=== PATIENT | male | born 1970 | race Caucasian/White ===

== ENCOUNTER → 2023-04-14 | Outpatient (CLI) | payer BC ==
[2023-04-14 12:13] LABS: HEMATOCRIT 47.6 % (42.0-52.0); HEMOGLOBIN 15.8 g/dL (13.5-18.0); MEAN PLATELET VOLUME 11.2 fl (7.4-10.4); RED BLOOD COUNT 5.42 M/mm3 (4.20-5.60); RED CELL DISTRIBUTION WIDTH 12.2 % (11.5-14.5); WHITE BLOOD COUNT 6.2 K/mm3 (4.8-10.8)
[2023-04-14 12:18] LABS: ALBUMIN 4.5 g/dL (3.5-5.0)
[2023-04-14 12:19] LABS: SODIUM 143 mmol/L (136-145)
[2023-04-14 12:20] LABS: CALCIUM 9.3 mg/dL (8.3-10.5)
[2023-04-14 12:21] LABS: GLUCOSE 101 mg/dL (75-110); TOTAL PROTEIN 7.8 g/dL (6.4-8.3)
[2023-04-14 12:22] LABS: CARBON DIOXIDE 26 mmol/L (22-29)
[2023-04-14 12:23] LABS: TOTAL BILIRUBIN 0.6 mg/dL (0.2-1.2)
[2023-04-14 12:26] LABS: AST-SGOT 26 U/L (5-34)
[2023-04-14 12:27] LABS: ALT/SGPT 31 U/L (0-55)
[2023-04-14 12:36] LABS: TROPONIN-I < 0.030 ng/mL (<0.030)
== END ==
LOC: AMSURD 11:44
PROVIDERS: Nurse Practitioner Primary Care
DX: R07.9 Chest pain, unspecified (principal)